=== PATIENT | female | born 1985 | race Caucasian/White ===

== ENCOUNTER 2018-11-01 11:38 | Emergency (ER) | payer SELFPAY ==
[2018-11-01 11:39] VITALS: BP 118/67; PULSE 78; RESP 18; TEMP 36.8; O2SAT 98; BMI 24.0
--- NOTE | 2018-11-01 12:17 | EKG12_ITS ---
Test Reason : CP Blood Pressure : / mmHG Vent. Rate : 075 BPM Atrial Rate : 075 BPM P-R Int : 150 ms QRS Dur : 096 ms QT Int : 388 ms P-R-T Axes : 050 031 036 degrees QTc Int : 433 ms Normal sinus rhythm Normal ECG Confirmed by MILLER GARRIDO, LARY ([id number]), photographic editor MANUEL VILLATORO ([id number] on 11/07/2018 4:17:28 PM Referred By: KLEVER/SONDRA Confirmed By:LARY BHATT MD
[2018-11-01 12:18] VITALS: BP 106/83; PULSE 78; RESP 16; O2SAT 96
[2018-11-01 12:19] VITALS: O2SAT 97
--- NOTE | 2018-11-01 12:20 | RAD_ITS ---
STUDY: X-RAY CHEST REASON FOR EXAM: Female, 33 years old. Chest pain and shortness of breath TECHNIQUE: Single AP portable view of the chest. COMPARISON: None. FINDINGS: The lungs are clear and expanded. There is no demonstrated pleural abnormality. Normal size heart. Normal mediastinum and charles. Normal visualized pulmonary arteries. Normal visualized aortic arch and descending thoracic aorta. Normal visualized thoracic spine. Normal visualized ribs, clavicles, and shoulders. There is no demonstrated abnormality of the visualized soft tissue structures of the upper abdomen. RAD/Chest 1 View (Portable) IMPRESSION: Normal x-ray examination of the chest. Electronically Signed: Simeon Wynne DO at 12:42 EDT Tel , Service support ,
[2018-11-01] MEDS: Mag Hydrox/Al Hydrox/Simeth 30 ML UDC PO (12:28)
[2018-11-01 12:39] LABS: Absolute Lymphocyte Count 3.36 X10^3/ul (0.83-4.51); Absolute Neutrophil Count 3.8 X10^3/uL (2.0-7.7); Basophil# 0.04 X10^3/uL; Basophil% 0.5 % (0-1); Eosinophil# 0.34 X10^3/uL; Eosinophils% 4.1 % (0-5); Hematocrit 41.4 % (37-47); Lymphocyte # 3.36 X10^3/ul (4.0); Lymphocyte % 40.4 % (19-41); Mean Corp Hgb Conc 33.8 g/gl (32-36); Mean Corpuscular Hgb 30.3 pg (27.0-32.0); Mean Corpuscular Volume 89.6 fL (81-99); Monocyte# 0.73 X10^3/uL; Monocyte% 8.8 % (0-10); Neutrophil # 3.83 X10^3/uL (2.7-7.7); Neutrophil % 46.1 % (47-70); Platelet Count 312 K/mm3 (150-450); RBC Distribution Width CV 13.5 % (11.6-14.6); RBC Distribution Width SD 44.3 fl (35.1-43.9); Red Blood Count 4.62 M/mm3 (4.2-5.4); White Blood Count 8.3 K/mm3 (4.4-11.0)
[2018-11-01 12:41] LABS: POSITIVE COUNT NO; POSITIVE DIFFERENTIAL NO; POSITIVE MORPHOLOGY NO
--- NOTE | 2018-11-01 12:44 | ED.VISSUMM ---
- ER Visit Summary Date of Service: 11/01/18 Chief Complaint: Pain chest pain History of Present Illness: The patient is a 33 F with chest pain that has been constant for about 8 hours. She woke up after night terror with this pain and has had it ever since. She denies any back pain or radiation of the pain to any extremity or jaw, no tearing sensation. She denies any PE risk factors. Pain is in the wrist lower retrosternal region. No history of trauma. Physical Examination: Not appear in acute distress. Moist mucous membranes, no obvious facial deformity No C-spine tenderness supple neck. Regular rate and rhythm without any obvious murmurs Clear lungs bilaterally speaking in full sentences without any obvious respiratory distress Abdomen soft and nontender no guarding or rebound Moves all extremities without any difficulty or pain. Skin does not show any obvious rashes or lesions, no trauma. Alert oriented ?3 with no gross focal deficit Emergency Department Course and Treatment: Patient has a normal EKG, normal troponin. Heart score is a 0, may be a 1. She has no PE or DVT risk factors. I will discharge her with symptomatic treatment. Disposition: Discharge stable condition Impression: Chest pain This note was generated with [employer] dictation software. It may contain incorrect words, spelling, and punctuation that were not noted in review of the chart prior to signing ED Disposition - Plan for ED Patient: Referrals: Shlomo Romero MD [Primary Care Provider] -
[2018-11-01 12:50] LABS: Anion Gap 3 (5-15); BUN 10 mg/dL (7-18); BUN/Creat Ratio 14.6 RATIO (10-20); Calcium,Total 8.5 mg/dL (8.5-10.1); Chloride 108 mmol/L (98-107); Creatinine, Serum 0.68 mg/dL (0.55-1.02); EST Glomerular Filtration Rate 106 mL/min (>60); Est Glom Filt Rate - Afr Amer 129 mL/min (>60); Estimated Creatinine Clearance 103.51 ml/min; Glucose 95 mg/dL (74-106); Potassium 3.5 mmol/L (3.5-5.1); Sodium Level 136 mmol/L (136-145)
[2018-11-01 13:01] VITALS: BP 113/81; PULSE 68; RESP 16; O2SAT 98
--- NOTE | 2018-11-01 13:03 | ED.DEP ---
ED Disposition - Plan for ED Patient: Disposition: Home or Assisted Living Instructions: ED Chest Pain Atypical Unkn Cause Prescriptions: Lorazepam [Ativan] 0.5 mg PO DAILY #8 tab Referrals: Shlomo Romero MD [Primary Care Provider] - 3-5 Days
[2018-11-01] MEDS: Ketorolac 15 MG/ML Vial IV (13:37)
== END 2018-11-01 13:43 | disposition home or self-care (01) ==
LOC: ED 13:13
PROVIDERS: Emergency Provider Emergency Medicine; Family Provider Family Medicine; PCP Family Medicine
DX: R07.9 Chest pain, unspecified (principal)
CPT/HCPCS: 71045; 80048; 84484; 85025; 93005; 96374; 99284; A4216

== ENCOUNTER 2019-06-10 08:06 | Emergency (ER) | payer SELFPAY ==
[2019-06-10 08:07] VITALS: BP 140/94; PULSE 115; RESP 18; TEMP 36.3; O2SAT 98; BMI 23.3
[2019-06-10 08:12] VITALS: RESP 16
--- NOTE | 2019-06-10 08:25 | ED.DCSUM_ITS ---
History of Present Illness Chief Complaint: Upper Extremity Injury Detail of Chief Complaint: Neck and left arm stiffness Informant: Patient Onset: Today Current Severity: Moderate Maximum Severity: Moderate Narrative: Patient states she woke up this morning with pain in the left side of her neck with spasm and pain going on her left arm. She is left-hand dominant. She denies any direct injury or trauma. She states she has had this happen once before several years ago. - Past Medical History (1) ADHD Status: Chronic (2) Anxiety Status: Chronic (3) Depression Status: Chronic Past Medical History - Allergies and Home Meds Allergies/Adverse Reactions: Allergies codeine Allergy (Verified 06/10/19 08:07) Itching latex Allergy (Verified 06/10/19 08:07) Hives Sulfa (Sulfonamide Antibiotics) Allergy (Verified 06/10/19 08:07) throat swelling metoclopramide HCl [From Reglan] Adverse Reaction (Verified 06/10/19 08:07) Other anxiety Primary Care Physician: Shlomo Romero MD [Primary Care Provider] - Prior records reviewed: Yes Smoking Status: Never smoker Review of Systems General: Denies: Chills, Fever Eyes: Denies: Visual changes - bilaterally ENT: Denies: Bilateral ear pain Cardiovascular: Denies: Chest pain, Palpitations Respiratory: Denies: Dyspnea, Cough Gastrointestinal: Denies: Abdominal pain, Nausea, Vomiting, Diarrhea Musculoskeletal: Reports: Neck pain, Extremity Pain Neurological: Reports: Parasthesia - Intermittent tingling in left hand Endocrine: Denies: Polyuria, Polydipsia Hematologic: Denies: Easy bruising Allergy: Denies: Uticaria Physical Exam Vital Signs/Narrative: Vital Signs Temp Pulse Resp BP Pulse Ox 06/10/19 08:12 16 06/10/19 08:07 97.4 F L 115 H 18 140/94 H 98 Inital Vital Signs reviewed: Yes General: Well nourished, Well developed Head: Normocephalic ENT: Moist mucous membranes Neck: Supple, - - Tenderness palpation of the left cervical paraspinal muscles. Cardiovascular: Regular rate, Regular rhythm Respiratory: No distress, CTA bilaterally Abdomen: Soft, Nontender Extremities: - - Mild muscular tenderness in the left arm. No focal joint tenderness. Strong distal pulses and strong hand grasp. Skin: Normal color Neurological: Alert, Oriented x3 Psychological: Normal affect Diagnostic/Tx/Re-eval - Medical Decision Making Patient had no trauma or injury do not feel that x-rays be beneficial. She will be given anti-inflammatories here. She be given prescription for anti- inflammatories and antispasm medication for home. She will follow-up with her primary care physician if not improving. ED Disposition - Plan for ED Patient: Disposition: Home or Assisted Living Diagnosis: Neck muscle spasm Instructions: NECK SPASM, No Trauma Prescriptions: cycloBENZAPRine HCl [Flexeril] 10 mg PO TID PRN #20 tablet PRN Reason: Muscle Spasm Naproxen [Naprosyn] 500 mg PO BID PRN PRN #20 tablet PRN Reason: Pain Score 1-10/10 Referrals: Shlomo Romero MD [Primary Care Provider] - 3-5 Days if not improving
[2019-06-10] MEDS: Naproxen 500 MG Tablet PO (08:32)
== END 2019-06-10 08:40 | disposition home or self-care (01) ==
PROVIDERS: Emergency Provider Emergency Medicine; Family Provider Family Medicine; PCP Family Medicine
DX: M62.838 Other muscle spasm (principal); F32.9 Major depressive disorder, single episode, unspecified; F41.9 Anxiety disorder, unspecified; F90.9 Attention-deficit hyperactivity disorder, unspecified type; Z88.2 Allergy status to sulfonamides; Z88.8 Allergy status to other drugs, medicaments and biological substances; Z91.040 Latex allergy status
CPT/HCPCS: 99283

== ENCOUNTER 2019-08-29 10:42 | Emergency (ER) | payer SELFPAY ==
[2019-08-29 10:43] VITALS: BP 111/70; PULSE 90; RESP 16; TEMP 36.4; O2SAT 97; BMI 22.3
--- NOTE | 2019-08-29 10:49 | RAD_ITS ---
STUDY: X-RAY - LUMBAR SPINE REASON FOR EXAM: Female, 34 years old. LOWER BACK PAIN X COUPLE MONTHS, RADIATION DOWN RT LEG TECHNIQUE: 3 view(s) of the lumbar spine were obtained. COMPARISON: None FINDINGS: There is straightening of the normal lumbar lordosis. There is a minimal dextroscoliosis of the lumbar spine. There is a normal alignment of the vertebrae. Normal vertebral bodies and endplates. Normal disc space heights. Partial sacralization of the L5 vertebrae on the left side. The soft tissue structures are unremarkable. RAD/Lumbar Spine 2 or 3 Views IMPRESSION: Straightening of the normal lumbar lordosis. Partial sacralization of the L5 vertebrae on the left. Electronically Signed: Yariel Armenta, at 11:51 EST , Service support ,
--- NOTE | 2019-08-29 10:52 | ED.DCSUM_ITS ---
History of Present Illness Chief Complaint: Back Informant: Patient Onset: Days Context: Gradual Onset Timing: Intermittent Current Severity: Moderate Maximum Severity: Moderate Narrative: The patient presents to the emergency department with low back pain with radicular symptoms. She states that over the past month, she is had a dull ache in her low back. She states that she works for [employer] and has to be on her hands and knees a lot. Over the past 2 days, she is begun to have burning pain down her leg. She denies any numbness in her groin. She denies any definitive trauma. She is had no difficulty urinating or moving her bowels. She has been taking Aleve with some improvement. She has no history of prior lumbar surgery. Prior similar symptoms: No Recent Illness/Hospitalization: No Past Medical History - Allergies and Home Meds Allergies/Adverse Reactions: Allergies codeine Allergy (Verified 08/29/19 10:42) Itching latex Allergy (Verified 08/29/19 10:42) Hives Sulfa (Sulfonamide Antibiotics) Allergy (Verified 08/29/19 10:42) throat swelling metoclopramide HCl [From Reglan] Adverse Reaction (Verified 08/29/19 10:42) Other anxiety Primary Care Physician: Shlomo Romero MD [Primary Care Provider] - Prior records reviewed: Yes Past Medical History: None Surgical History: noncontributory Smoking Status: Never smoker Review of Systems General: Denies: Chills, Fever, Sweats Eyes: Denies: Visual changes - bilaterally, Diplopia ENT: Denies: Rhinorrhea, Sore throat Cardiovascular: Denies: Chest pain, Palpitations Respiratory: Denies: Dyspnea, Cough, Dyspnea on exertion Gastrointestinal: Denies: Abdominal pain, Nausea, Vomiting, Diarrhea, Melena, Hematochezia Genitourinary: Denies: Dysuria, Hematuria, Frequency Musculoskeletal: Denies: Back pain, Extremity Pain Skin: Denies: Rash, Wounds Neurological: Denies: Headache, Weakness, Numbness Physical Exam Vital Signs/Narrative: Vital Signs Temp Pulse Resp BP Pulse Ox 08/29/19 10:43 97.5 F L 90 16 111/70 97 Inital Vital Signs reviewed: Yes General: Well nourished, Well developed, No Acute Distress Head: Normocephalic, Atraumatic Eyes: Perrl, EOMI ENT: Moist mucous membranes, No rhinorrhea Neck: Supple, Nontender Cardiovascular: Regular rate, Regular rhythm, No murmurs Respiratory: No distress, CTA bilaterally, Chest nontender Abdomen: Soft, Nontender, Nondistended, Normal bowel sounds Back: Normal Inspection. Negative for: CVA tenderness, Spinal tenderness Extremities: Nontender, No edema Skin: Normal color, No rash Neurological: Alert, Oriented x3, Cranial nerves II-XII grossly intact, Normal Strength, Normal Sensation Psychological: Normal affect, Normal Mood Diagnostic/Tx/Re-eval Clinical Impression(s) from Imaging Studies Lumbar Spine X-Ray 08/29/19 10:49 IMPRESSION: Straightening of the normal lumbar lordosis. Partial sacralization of the L5 vertebrae on the left. Electronically Signed: Yariel Mcdonoughmanuel, at 11:51 EST , Service support , - Medical Decision Making The patient symptoms do seem consistent with a radiculopathy. She has normal reflexes, pulses, and a normal steady gait. She has had no red flag symptoms. Plain films obtained which are unremarkable for acute fracture. I am going to treat the patient with a short course of analgesics and antispasmodics. She was counseled on follow-up and she may benefit from physical therapy and reasons to return. She is comfortable with this plan of care. Impression 1. Right low back pain with radiculopathy ED Disposition - Plan for ED Patient: Instructions: BACK PAIN w/ SCIATICA Prescriptions: cycloBENZAPRine HCl [Flexeril] 10 mg PO TID PRN #20 tab PRN Reason: Muscle Spasm Prescription Printed MethylPREDNISolone DosePak [Medrol DosePak] 4 mg PO UD #1 box Prescription Printed Hydrocodone Bitart/Apap 5-325 [[place] 5MG-325MG] 1 tab PO Q6H PRN PRN 3 Days #10 tab PRN Reason: Pain Prescription Printed Referrals: Shlomo Romero MD [Primary Care Provider] -
== END 2019-08-29 12:16 | disposition home or self-care (01) ==
LOC: ED 11:32
PROVIDERS: Emergency Provider Emergency Medicine; PCP Family Medicine
DX: M54.16 Radiculopathy, lumbar region (principal)
CPT/HCPCS: 72100; 99282

== ENCOUNTER 2020-05-13 09:41 | Emergency (ER) | payer SELFPAY ==
[2020-05-13 09:41] VITALS: BP 126/75; PULSE 82; RESP 17; TEMP 36.2; O2SAT 98; BMI 26.2
[2020-05-13 09:58] VITALS: RESP 16
--- NOTE | 2020-05-13 09:58 | ED.VIS.GEN ---
History of Present Illness Chief Complaint: Flank Pain Informant: Patient Narrative: Patient presents to the emergency department for the evaluation of right flank and pelvic pain. Patient reports that last week she had a couple urinations where she noted blood. She states that resolved but now has been having this intermittent pain. She notes urinary frequency but no dysuria. She thought that perhaps she had an ovarian cyst or a kidney stone. She denies any prior abdominal surgeries. No fevers. She notes nausea but no vomiting. Normal bowel movements. No rashes. - Past Medical History (1) ADHD Status: Chronic (2) Anxiety Status: Chronic (3) Depression Status: Chronic (4) Migraine Status: Chronic Past Medical History - Allergies and Home Meds Allergies/Adverse Reactions: Allergies codeine Allergy (Verified 05/13/20 09:41) Itching latex Allergy (Verified 05/13/20 09:41) Hives Sulfa (Sulfonamide Antibiotics) Allergy (Verified 05/13/20 09:41) throat swelling metoclopramide HCl [From Reglan] Adverse Reaction (Verified 05/13/20 09:41) Other anxiety Primary Care Physician: Shlomo Romero MD [Primary Care Provider] - Prior records reviewed: Yes Surgical History: noncontributory Smoking Status: Never smoker Drugs: None Review of Systems General: Denies: Chills, Fever, Sweats Eyes: Denies: Visual changes - bilaterally, Diplopia ENT: Denies: Rhinorrhea, Sore throat Cardiovascular: Denies: Chest pain, Palpitations Respiratory: Denies: Dyspnea, Cough, Dyspnea on exertion Gastrointestinal: Reports: Abdominal pain, Nausea. Denies: Vomiting, Diarrhea, Melena, Hematochezia Genitourinary: Reports: Hematuria, Frequency. Denies: Dysuria Musculoskeletal: Reports: - - Right flank pain. Denies: Back pain, Extremity Pain Skin: Denies: Rash, Wounds Neurological: Denies: Headache, Weakness, Numbness Physical Exam Vital Signs/Narrative: Vital Signs Temp Pulse Resp BP Pulse Ox 05/13/20 09:41 97.2 F L 82 17 126/75 H 98 Inital Vital Signs reviewed: Yes General: Well nourished, Well developed, No Acute Distress Head: Normocephalic, Atraumatic Eyes: Perrl, EOMI ENT: Moist mucous membranes, No rhinorrhea Neck: Supple, Nontender Cardiovascular: Regular rate, Regular rhythm, No murmurs Respiratory: No distress, CTA bilaterally, Chest nontender Abdomen: Soft, Nondistended, Normal bowel sounds, Tender - Tender palpation right lower quadrant and suprapubic region. No rebound.. Negative for: Guarding, Rebound tenderness Back: Normal Inspection, CVA tenderness - right Extremities: Nontender, No edema Skin: Normal color, No rash Neurological: Alert, Oriented x3, Cranial nerves II-XII grossly intact, Normal Strength, Normal Sensation Psychological: Normal affect, Normal Mood Diagnostic/Tx/Re-eval Laboratory Last Values Urine Color Yellow (Yellow) 05/13/20 11:15 Urine Clarity Sl. Cloudy (Clear) 05/13/20 11:15 Urine pH 6.0 (5.0 - 8.0) 05/13/20 11:15 Ur Specific [place] 1.015 (1.002-1.030) 05/13/20 11:15 Urine Protein 15 mg/dl (Negative) H 05/13/20 11:15 Urine Glucose (UA) Normal mg/dl (Normal) 05/13/20 11:15 Urine Ketones Negative mg/dl (Negative) 05/13/20 11:15 Urine Occult Blood 250 /ul (Negative) H 05/13/20 11:15 Urine Nitrite Negative (Negative) 05/13/20 11:15 Urine Bilirubin Negative mg/dL (Negative) 05/13/20 11:15 Urine Urobilinogen Normal mg/dl (Normal) 05/13/20 11:15 Ur Leukocyte Esterase Negative /ul (Negative) 05/13/20 11:15 Urine RBC 25-50 SEEN /hpf (0-5) 05/13/20 11:15 Urine WBC 0 SEEN /hpf (0-5) 05/13/20 11:15 Ur Squamous Epith Cells 0-5 SEEN /hpf (5-10) 05/13/20 11:15 Urine Bacteria 1+ /hpf (None Seen) 05/13/20 11:15 Urine Mucus 0 SEEN /hpf (<or=2+) 05/13/20 11:15 Urine Test Negative Negative 05/13/20 11:15 Clinical Impression(s) from Imaging Studies Abdomen/Pelvis CT 05/13/20 11:32 IMPRESSION: 3.2 mm calculus in the midportion of the right ureter causing mild degree of right hydronephrosis and hydroureter. Electronically Signed: Yariel Armenta, at 11:50 EDT , Service support , - Medical Decision Making Patient has a 3 mm stone proximally on the right. Mild hydro-. Urine is not infected. Would refer her to urology and write for pain and nausea medication. Return instructions given. ED Disposition - Plan for ED Patient: Disposition: Home or Assisted Living Diagnosis: Right ureteral calculus, Renal colic on right side Instructions: ED Renal Stone w Colic Prescriptions: Hydrocodone Bitart/Apap 5-325 [[place] 5MG-325MG] 1 tab PO Q6H PRN PRN 3 Days #15 tab PRN Reason: Pain Prescription Printed Ondansetron [Zofran Odt] 4 mg PO Q6H PRN PRN #14 tab PRN Reason: Nausea Prescription Printed Referrals: Jordan Menendez MD [STAFF PHYSICIAN] - As soon as possible Ania Worthy MD [STAFF PHYSICIAN] - As soon as possible
[2020-05-13] MEDS: Ondansetron ODT 4 MG Tablet PO (11:00)
[2020-05-13 11:20] LABS: Mucous, Urine 0 SEEN /hpf (<or=2+); White Blood Cells 0 SEEN /hpf (0-5)
[2020-05-13 11:26] LABS: Color, Urine Yellow (Yellow); Glucose, Dipstick Normal (Normal); Ketone-Dipstick Negative (Negative); Leukocyte Esterase-Dipstick Negative /ul (Negative); Nitrite-Dipstick Negative (Negative); Occult Blood-Urine 250 /ul (Negative); Protein-Dipstick 15 mg/dl (Negative); Specific Gravity, Urine 1.015 (1.002-1.030); Urine Bilirubin Dipstick Negative (Negative); Urine Clarity Sl. Cloudy (Clear); Urine Urobilinogen Normal (Normal)
[2020-05-13 11:31] LABS: Bacteria 1+ /hpf (None Seen); Red Blood Cells-Urine 25-50 SEEN /hpf (0-5); Squamous Epithelial Cells - UA 0-5 SEEN /hpf (5-10)
[2020-05-13 11:32] LABS: Internal QC Validated? YES +Cl - CLEAR BKGD; Pregnancy, Urine Negative Negative
--- NOTE | 2020-05-13 11:32 | CT_ITS ---
STUDY: CT ABDOMEN AND PELVIS WITHOUT CONTRAST REASON FOR EXAM: Female, 35 years old. BILATERAL FLANK PAIN WITH NAUSEA AND INCREASED URINARY FREQUENCY RADIATION DOSAGE (If Supplied By Facility): CTDIvol = ( 6.90 ) mGy, DLP = ( 351.60 ) mGycm TECHNIQUE: Transaxial images were obtained from the dome of the diaphragm to the symphysis pubis without oral contrast, and without intravenous contrast. Sagittal and coronal images were reconstructed. Individualized dose optimization techniques were used for this CT. COMPARISON: None. FINDINGS: The visualized lung bases are unremarkable. The visualized portions of the heart are within normal limits. Normal liver. Normal gallbladder and extrahepatic biliary system. Normal spleen. Normal pancreas. Normal bilateral adrenal glands. Mild degree of right hydronephrosis and hydroureter due to a 3.2 mm calculus in the midportion of the right ureter. Normal left kidney. Normal visualized stomach. Normal small intestine. Normal colon. The appendix is visualized and appears normal. Normal abdominal aorta. Normal inferior vena cava. Normal retroperitoneum. Normal urinary bladder. Normal abdominal wall. Normal osseous structures. CT/Abdomen/Pelvis without Cont IMPRESSION: 3.2 mm calculus in the midportion of the right ureter causing mild degree of right hydronephrosis and hydroureter. Electronically Signed: Yariel Armenta, at 11:50 EDT , Service support ,
== END 2020-05-13 13:08 | disposition home or self-care (01) ==
PROVIDERS: Emergency Medicine; PCP Family Medicine
DX: N13.2 Hydronephrosis with renal and ureteral calculous obstruction (principal)
CPT/HCPCS: 74176; 81001; 81025; 99282

== ENCOUNTER 2021-05-11 08:29 | Emergency (ER) | payer MEDICARE, SELFPAY ==
[2021-05-11 08:30] VITALS: BP 134/104; PULSE 117; RESP 22; TEMP 36.6; O2SAT 97; BMI 27.3
[2021-05-11 08:57] VITALS: O2SAT 96
--- NOTE | 2021-05-11 09:21 | EDS_ITS ---
HPI History of Present Illness Chief Complaint: Shortness of Breath Detail of Chief Complaint: Patient with URI symptoms x2 days Informant: patient Narrative Narrative: Patient presents to the emergency department complaint sore throat, cough and fever for 2 days. She denies shortness of breath. She does describe body aches and loss of taste and smell. Patient denies any Covid exposures. She has not had the Covid vaccine. She has no medical history otherwise. She denies any chest pain. Prior similar symptoms: No PFSH PFSH Medical History no medical history Home Medications NK 05/11/21 [History Last Taken Unknown] Allergy/AdvReac Type Severity Reaction Status Date / Time codeine Allergy Itching Verified 05/11/21 08:30 latex Allergy Hives Verified 05/11/21 08:30 Sulfa (Sulfonamide Allergy throat Verified 05/11/21 08:30 Antibiotics) swelling metoclopramide HCl AdvReac Other Verified 05/11/21 08:30 [From [facility]] Surgical History no surgical history Social History Smoking Status: Never smoker ROS ROS ED Constitutional Constitutional ED: Reports systems reviewed and no addt'l complaints, except as documented and fever(s); Denies body ache(s), change in weight or chills Eyes Eyes: Denies acute decrease in peripheral vision, change in vision, double vision or loss of vision ENT ENT ED: Reports none and sore throat; Denies ear pain, lip swelling, loss taste/smell, neck pain or otalgia Cardiovascular Cardiovascular: Reports none; Denies abdominal pain, chest pain with activity, leg edema, lightheadedness, palpitations, rapid heart rate or syncope Respiratory/Chest Respiratory/Chest: Reports none and cough; Denies change in mental status, dry cough, dyspnea, hemoptysis, shortness of breath at rest or shortness of breath with exertion Gastrointestinal Gastrointestinal: Reports none; Denies abdominal pain, change in stool character, diarrhea, hematemesis, hematochezia, melena, rectal bleeding or vomiting Genitourinary Genitourinary ED: Reports none; Denies abdominal discomfort, anuria, dysuria, genital pain or polyuria Musculoskeletal Musculoskeletal: Reports none and myalgias; Denies arthralgias, back pain, difficulty walking, extremity pain or muscle weakness Integumentary Reports none; Denies abscess or rash Neurologic Neurologic: Reports none and headache(s); Denies abnormal gait, confusion, focal weakness, frequent falls, loss of vision, numbness, paresthesias, radicular pain, vertigo or weakness Psychiatric Psychiatric: Reports systems reviewed and no addt'l complaints, except as documented and none; Denies behavioral changes, confusion, difficulty concentrating, hallucinations, suicidal ideation, tactile hallucinations or visual hallucinations Endocrine Endocrinology: Denies none, cold intolerance, excessive sweating, fatigue or heat intolerance Hematologic/Lymphatic Hematologic/Lymphatic: Reports none; Denies anemia, easy bleeding or easy bruising Allergic/Immunologic Allergic/Immunologic ED: Denies as per HPI, none, lip swelling, mouth swelling, throat swelling, tongue swelling or hives EXAM Physical Exam Const Vital Signs: 05/11/21 08:30 05/11/21 08:57 Temperature 98 F Temperature Source Temporal Pulse Rate 117 H Respiratory Rate 22 H Respiratory Effort Normal Respiratory Depth Normal Respiratory Pattern Normal Blood Pressure 134/104 H Blood Pressure Mean 114 Pulse Ox 97 Oxygen Delivery Method Room Air Room Air Positive well nourished and well developed General Appearance ED: well developed and NAD HEENT Reports TM's clear and moist mucous membranes HEENT Narrative: No pharyngeal erythema or exudates. Uvula midline. No trismus. normocephalic and atraumatic; Negative for trauma or tenderness Tympanic Membrane ED: Yes TM's clear Eyes PERRL and EOMs intact bilaterally General Eye ED: Negative for pale conjunctiva or scleral icterus Neck no lymphadenopathy, supple and no JVD General: Negative for tenderness Chest Wall inspection of chest normal and palpation of chest normal Chest: Negative for tenderness Resp normal respiratory effort and clear to auscultation bilaterally Effort and Inspection: Negative for respiratory distress or pain with movement Auscultation: Negative for rhonchi, wheezes or diminished lung sounds Cardio regular rate, regular rhythm, S1 normal heart sound, S2 normal heart sound and no murmurs Peripheral Pulses: pulses 2+ throughout GI normal to inspection, nondistended, normoactive bowel sounds, soft to palpation, non-tender, non-distended and no masses Back/Spine no CVA tenderness and no thoracic nor lumbar tenderness Extremity normal to inspection General Extremety ED: Negative for edema General Extremity: Negative for edema Neuro oriented x3, CN's II-XII intact bilaterally, no sensory deficits noted and gait normal Sensorium / Orientation: awake, alert, oriented to person, oriented to place and oriented to time Motor Exam: strength 5/5 throughout and strength abnormal Psych mental status grossly normal Skin no rashes or lesions noted and no wounds MDM MDM MDM Narrative Medical decision making narrative: Patient has COVID-19. I do not feel any further work-up is indicated. Patient advised to return if increasing shortness of breath or condition should worsen anyway. Patient will be referred to primary care physician program coordinator executive education for no doc. Lab Data Attestation: I reviewed the patient's lab results. Discharge Plan Triage Chief Complaint: Shortness of Breath ED Provider: Courtney Melendez Dx/Rx/DC Orders Clinical Impression: COVID-19 Instructions: Caring for Someone Who Has COVID-19 Prescriptions: No Action NK RF: 0 Primary Care Provider: Shlomo Romero Referrals: Shlomo Romero MD [Primary Care Provider] - 5-7 Days Disposition Disposition: Home, Self Care
== END 2021-05-11 09:31 | disposition home or self-care (01) ==
PROVIDERS: Emergency Provider Emergency Medicine
DX: U07.1 COVID-19 (principal)
CPT/HCPCS: 87426; 99282; A4216

== ENCOUNTER 2021-05-18 14:12 | Emergency (ER) | payer SELFPAY ==
[2021-05-18 14:13] VITALS: BP 115/93; PULSE 94; RESP 20; TEMP 36.2; O2SAT 95; BMI 26.5
--- NOTE | 2021-05-18 14:57 | EKG12_ITS ---
Test Reason : SOB Blood Pressure : / mmHG Vent. Rate : 068 BPM Atrial Rate : 068 BPM P-R Int : 134 ms QRS Dur : 098 ms QT Int : 408 ms P-R-T Axes : 028 046 048 degrees QTc Int : 433 ms Normal sinus rhythm Normal ECG Confirmed by MILLER GARRIDO, LARY ([id number]), editor department TEDDY WADE ([id number]) on 05/20/2021 10:57:35 AM Referred By: BB Confirmed By:LARY BHATT MD
--- NOTE | 2021-05-18 14:59 | ED.VIS.DYS ---
HPI History of Present Illness Chief Complaint: Shortness of Breath Informant: patient Narrative Narrative: 36-year-old female presents on approximately day 8 or 9 of Covid. She tested positive on 11 May here in [place]. Patient states for the past 3 days her cough and shortness of breath have worsened. She notes coughing fits postnasal drip and rhinorrhea. She notes decreased appetite. She denies any significant medical problems other than anxiety depression. She was nonvaccinated. Patient does note green sputum. PFSH PFSH Medical History (Updated 05/18/21 @ 16:[address] Juan Arreola DO) ADHD Anxiety COVID-19 Depression Migraine Home Medications dexamethasone [Decadron] 6 mg PO DAILY #5 tab 05/18/21 [Rx Last Taken Unknown] Allergy/AdvReac Type Severity Reaction Status Date / Time codeine Allergy Itching Verified 05/18/21 14:14 latex Allergy Hives Verified 05/18/21 14:14 Sulfa (Sulfonamide Allergy throat Verified 05/18/21 14:14 Antibiotics) swelling metoclopramide HCl AdvReac Other Verified 05/18/21 14:14 [From Reg[facility]] Surgical History no surgical history no surgical history Social History (Updated 05/18/21 @ 15:[address] Juan Arreola DO) Smoking Status: Never smoker substance use type: does not use ROS ROS ED ROS Narrative Generalized fatigue Constitutional Constitutional ED: Reports chills and sweats; Denies weight loss Eyes Eyes: Denies change in vision or diplopia ENT ENT ED: Denies ear pain, rhinorrhea or sore throat Cardiovascular Cardiovascular: Reports chest pain; Denies orthopnea, palpitations or racing heartbeat Respiratory/Chest Respiratory/Chest: Reports cough, dyspnea, dyspnea on exertion and sputum; Denies orthopnea Gastrointestinal Gastrointestinal: Reports nausea; Denies abdominal pain, diarrhea or vomiting Genitourinary Genitourinary ED: Denies dysuria, hematuria or urinary frequency Musculoskeletal Musculoskeletal: Reports myalgias; Denies arthralgias Integumentary Denies abscess or rash Neurologic Neurologic: Denies headache(s) or weakness Psychiatric Psychiatric: Denies anxiety, depression, suicidal ideation or suicidal thoughts Endocrine Endocrinology: Denies polydipsia, polyphagia or polyuria Allergic/Immunologic Allergic/Immunologic ED: Denies mouth swelling, tongue swelling or urticaria EXAM Physical Exam Const Vital Signs: 05/18/21 14:13 05/18/21 15:22 Temperature 97.1 F L Temperature Source Temporal Pulse Rate 94 Respiratory Rate 20 H Respiratory Effort Short of Breath Respiratory Pattern Normal Blood Pressure 115/93 H Blood Pressure Mean 100 Pulse Ox 95 Oxygen Delivery Method Room Air Positive well nourished and well developed General Appearance ED: well developed HEENT Reports normocephalic, head/scalp atraumatic, TM's clear and moist mucous membranes HEENT Narrative: Rhinorrhea atraumatic Tympanic Membrane ED: Yes TM's clear Eyes PERRL and EOMs intact bilaterally Neck no lymphadenopathy, supple and no JVD Resp normal respiratory effort Auscultation: wheezes Cardio regular rate, regular rhythm and no murmurs GI normal to inspection, nondistended, normoactive bowel sounds and non-tender Palpation: soft Back/Spine no CVA tenderness and normal ROM Extremity normal to inspection General Extremety ED: Negative for edema General Extremity: Negative for edema Neuro oriented x3 and CN's II-XII intact bilaterally Sensorium / Orientation: alert Motor Exam: strength 5/5 throughout Psych mental status grossly normal Mood & Affect: Negative for depressed or tearful Skin no rashes or lesions noted and no wounds Rashes: no rashes MDM MDM MDM Narrative Medical decision making narrative: My interpretation of the chest x-ray is no acute findings. White count is normal at 6 hemoglobin 15.2. D-dimer 0.35. CMP showed ALT of 88 troponin is 6. Patient received instruction and albuterol MDI. She also received a dose of Decadron. Continue this therapy at home. Lab Data Labs: Laboratory Results - last 24 hr 05/18/21 05/18/21 05/18/21 15:25 15:25 15:25 WBC 6.0 RBC 5.06 Hgb 15.2 H Hct 44.1 MCV 87.2 MCH 30.0 MCHC 34.5 RDW Std Deviation 40.1 RDW Coeff of Yes[place] 12.6 Plt Count 282 MPV 10.3 Immature Gran % (Auto) 0.200 Neut % (Auto) 41.3 L Lymph % (Auto) 48.7 H Mayes % (Auto) 8.2 Eos % (Auto) 1.3 Baso % (Auto) 0.3 Absolute Neuts (auto) 2.5 Absolute Lymphs (auto) 2.92 Nucleated RBC % 0 D-Dimer Quant (PE/DVT) 0.35 Sodium 140 Potassium 3.6 Chloride 107 Carbon Dioxide 26.0 Anion Gap 7 BUN 13 Creatinine 0.72 Estim Creat Clear Calc 91.07 Est GFR (MDRD) Af Amer 119 Est GFR (MDRD) Non-Af 98 BUN/Creatinine Ratio 18.0 Glucose 102 Calcium 8.9 Total Bilirubin 0.40 AST 25 ALT 88 H Alkaline Phosphatase 89 Troponin I High Sens 6 Total Protein 7.2 Albumin 3.4 Globulin 3.8 Albumin/Globulin Ratio 0.9 EKG Initial EKG: Attestation: I personally reviewed and interpreted this EKG as follows: Comments: Normal sinus rhythm ventricular rate of 68 bpm Discharge Plan Triage Chief Complaint: Shortness of Breath ED Provider: Juan Arreola Dx/Rx/DC Orders Clinical Impression: Acute bronchitis due to COVID-19 virus Instructions: Coronavirus Disease 2019 (COVID-19): Caring for Yourself or Others Prescriptions: New dexamethasone [Decadron] 6 mg tablet 6 mg PO DAILY Qty: 5 RF: 0 Primary Care Provider: Care Physician,No Primary Referrals: Care Physician,No Primary [Primary Care Provider] - Activity Restrictions/Additional Instructions: 3 to 4 puffs of the albuterol MDI every 4 hours or as needed. Disposition Disposition: Home, Self Care
[2021-05-18] MEDS: dexAMETHasone 4 MG Tablet 6 MG PO (15:20)
[2021-05-18] MEDS: INHALER, ASSIST DEVICES 1 EACH SPACER INHALATION (15:24)
[2021-05-18 15:33] LABS: Absolute Lymphocyte Count 2.92 X10^3/uL (0.83-4.51); Absolute Neutrophil Count 2.5 X10^3/uL (2.0-7.7); Basophil# 0.02 X10^3/uL; Basophil% 0.3 % (0-1); Eosinophil# 0.08 X10^3/uL; Eosinophils% 1.3 % (0-5); Hematocrit 44.1 % (37-47); Hemoglobin 15.2 g/dL (12.0-15.0); Lymphocyte # 2.92 X10^3/ul (0.83-4.51); Lymphocyte % 48.7 % (19-41); Mean Corp Hgb Conc 34.5 g/dL (32-36); Mean Corpuscular Volume 87.2 fL (81-99); Mean Platelet Vol. 10.3 fl (6.2-12.0); Monocyte# 0.49 X10^3/uL; Monocyte% 8.2 % (0-10); NRBC Flagged by Analyzer 0 % (0-5); Neutrophil # 2.47 X10^3/uL (2.7-7.7); Neutrophil % 41.3 % (47-70); Platelet Count 282 K/mm3 (150-450); RBC Distribution Width CV 12.6 % (11.6-14.6); RBC Distribution Width SD 40.1 fl (35.1-43.9); Red Blood Count 5.06 M/mm3 (4.2-5.4)
--- NOTE | 2021-05-18 15:38 | RAD_ITS ---
HISTORY: covid 19, cough, dyspnea EXAMINATION/TECHNIQUE: XR Chest 1 View: Portable upright AP chest x-ray COMPARISON: 11/01/18 FINDINGS: LINES/DEVICES: None. LUNGS: No consolidation, edema or effusion. No pneumothorax. MEDIASTINUM AND CARDIOVASCULAR STRUCTURES: Cardiac silhouette not enlarged. Central airways and mediastinal contour are unremarkable. BONES AND SOFT TISSUES: No acute bony abnormalities. RAD/Chest 1 View (Portable) IMPRESSION: No radiographic evidence of acute cardiopulmonary disease. at 1609 Reported and signed by: Gunnar Licea MD Electronically Signed: Gunnar Licea MD at 16:08 EDT Tel , Service support ,
[2021-05-18 15:50] LABS: D-Dimer Quantitative (DVT/PE) 0.35 FEU/ug/m (0.27-0.49)
[2021-05-18 15:55] LABS: ALB/GLOB Ratio 0.9 RATIO (0.9-2.4); AST(SGOT) 25 U/L (15-37); Alanine Aminotransfer ALT/SGPT 88 U/L (13-56); Albumin, Serum 3.4 g/dL (3.2-5.0); Alkaline Phosphatase 89 U/L (45-117); Anion Gap 7 (5-15); BUN 13 mg/dL (7-18); Calcium,Total 8.9 mg/dL (8.5-10.1); Chloride 107 mmol/L (98-107); Creatinine, Serum 0.72 mg/dL (0.55-1.02); EST Glomerular Filtration Rate 98 mL/min (>60); Est Glom Filt Rate - Afr Amer 119 mL/min (>60); Estimated Creatinine Clearance 91.07 ml/min; Globulin 3.8 g/dL (2.2-4.2); Glucose 102 mg/dL (74-106); Potassium 3.6 mmol/L (3.5-5.1); Protein, Total 7.2 g/dL (6.4-8.2); Sodium Level 140 mmol/L (136-145); Troponin-I HS 6 pg/mL (3.0-54.0)
[2021-05-18 16:12] VITALS: RESP 20; O2SAT 96
== END 2021-05-18 16:12 | disposition home or self-care (01) ==
PROVIDERS: Emergency Provider Emergency Medicine
DX: U07.1 COVID-19 (principal); J20.8 Acute bronchitis due to other specified organisms
CPT/HCPCS: 71045; 80053; 84484; 85025; 85379; 93005; 94640; 99284; A4216

== ENCOUNTER 2022-01-09 03:57 | Emergency (ER) | payer OTHER, SELFPAY ==
[2022-01-09 03:58] VITALS: BP 122/68; PULSE 70; RESP 14; TEMP 36.6; O2SAT 96; BMI 27.4
--- NOTE | 2022-01-09 04:14 | ED.VIS.DENTA ---
HPI History of Present Illness Chief Complaint: Dental Informant: patient Onset/Context/Timing Onset: Yesterday Context: Gradual Onset Timing: Continuous Quality: Aching throbbing Location: Right side can tell of top or bottom Current Severity: Severe Maximum Severity: Severe Worsened by: Eating Relieved by: - (Nothing) Associated Symptoms Assocated Symptom - Dental: Negative for fever, jaw swelling or face swelling Narrative Narrative: Pain and sensation of swelling right dentition for the past 24 hours or so. Known history of dental problems. She knows she needs like for fillings. No fevers or chills or discharge or bleeding. [facility] Medical History ADHD Anxiety COVID-19 Depression Migraine Home Medications amoxicillin 500 mg tablet 500 mg PO TID #30 tabs 01/09/22 [Rx Last Taken Unknown] hydrocodone-acetaminophen 5-325mg 5mg-325mg 1 tab PO Q4H PRN PRN Pain 2 days #10 TABLETS 01/09/22 [Rx Last Taken Unknown] Allergy/AdvReac Type Severity Reaction Status Date / Time codeine Allergy Itching Verified 01/09/22 04:01 latex Allergy Hives Verified 01/09/22 04:01 Sulfa (Sulfonamide Allergy throat Verified 01/09/22 04:01 Antibiotics) swelling metoclopramide HCl AdvReac Other Verified 01/09/22 04:01 [From [facility]] Social History Smoking Status: Never smoker substance use type: does not use ROS ROS ED Constitutional Constitutional ED: Denies chills or fever(s) Eyes Eyes: Denies change in vision or double vision ENT ENT ED: Reports dental pain; Denies sinus pain or throat swelling Cardiovascular Cardiovascular: Denies chest pain or palpitations Respiratory/Chest Respiratory/Chest: Denies cough or dyspnea Integumentary Denies abscess or rash Neurologic Neurologic: Denies headache(s), paresthesias or weakness EXAM Physical Exam Const Vital Signs: 01/09/22 03:58 Temperature 98 F Temperature Source Temporal Pulse Rate 70 Respiratory Rate 14 Blood Pressure 122/68 H Blood Pressure Mean 86 Pulse Ox 96 Oxygen Delivery Method Room Air Positive well nourished and well developed General Appearance ED: well developed and NAD HEENT HEENT Narrative: Tender tooth #32 which appears to have a cecilio in the center of it and appears to be crowded by the other nearby molars. No abscess, no gingivitis, no bleeding, gingiva are normal-appearing. Maxillary teeth are nontender. No trismus. No sublingual edema. Face and Sinus: sinuses nontender Throat: posterior oropharynx normal Eyes PERRL and EOMs intact bilaterally Neck no lymphadenopathy and supple Resp normal respiratory effort Neuro oriented x3 and CN's II-XII intact bilaterally Sensorium / Orientation: alert Gait (Neuro): normal gait Psych mental status grossly normal and thought process normal Skin no rashes or lesions noted and no wounds MDM MDM MDM Narrative Medical decision making narrative: Will prescribe the patient something for pain and an antibiotic in case this is an early infected cecilio. There is no abscess that requires drainage at this time. Follow-up with dentistry. Discharge Plan Triage Chief Complaint: Dental ED Provider: Ramón Orlando Dx/Rx/DC Orders Clinical Impression: Odontalgia Instructions: ED Dental Pain Prescriptions: New hydrocodone-acetaminophen [hydrocodone-acetaminophen] 1 TABLET tablet 1 tab PO Q4H PRN PRN (Reason: Pain) 2 Days Qty: 10 0RF amoxicillin 500 MG tablet 500 mg PO TID Qty: 30 0RF Primary Care Provider: Care Physician,No Primary Referrals: Care Physician,No Primary [Primary Care Provider] - Dentist,Your [STAFF PHYSICIAN] - As soon as possible Disposition Disposition: Home, Self Care
[2022-01-09 04:35] VITALS: BP 122/68; PULSE 70; RESP 14; O2SAT 96
== END 2022-01-09 04:35 | disposition home or self-care (01) ==
LOC: ED 04:22
PROVIDERS: Emergency Provider Emergency Medicine; Visit Provider Emergency Medicine
DX: K08.89 Other specified disorders of teeth and supporting structures (principal); Z86.16 Personal history of COVID-19
CPT/HCPCS: 99282

== ENCOUNTER 2022-05-14 14:31 | Emergency (ER) | payer OTHER, SELFPAY ==
[2022-05-14 14:32] VITALS: BP 111/88; PULSE 80; RESP 16; TEMP 36.2; O2SAT 96; BMI 26.6
--- NOTE | 2022-05-14 14:48 | ED.VIS.DENTA ---
HPI History of Present Illness Chief Complaint: Dental Informant: patient Narrative Narrative: Increasing left lower wisdom tooth pain 3 AM this morning. She had her left upper removed 3 days ago followed by Talia Patricia. She reports was seen in the office sent here for evaluation for IV antibiotics concerning for progressing infection due to pain on her neck. She denies fevers. Pain with swallowing. No dyspnea no chest pains. PFSH PFSH Medical History ADHD Anxiety COVID-19 Depression Migraine Home Medications amoxicillin 500 mg tablet 500 mg PO TID #30 tabs 01/09/22 [Rx Last Taken Unknown] hydrocodone-acetaminophen 5-325mg 5mg-325mg 1 tab PO Q4H PRN PRN Pain 2 days #10 TABLETS 01/09/22 [Rx Last Taken Unknown] hydrocodone-acetaminophen 5-325mg 5mg-325mg 1 tab PO Q6H PRN pain 3 days #12 tabs 05/14/22 [Rx Last Taken Unknown] ondansetron 4 mg disintegrating tablet 4 mg PO Q6H PRN nausea and vomiting #10 tabs 05/14/22 [Rx Last Taken Unknown] penicillin V potassium 500 mg tablet 500 mg PO 4X/DAY #40 tabs 05/14/22 [Rx Last Taken Unknown] Allergy/AdvReac Type Severity Reaction Status Date / Time codeine Allergy Itching Verified 05/14/22 14:32 latex Allergy Hives Verified 05/14/22 14:32 Sulfa (Sulfonamide Allergy throat Verified 05/14/22 14:32 Antibiotics) swelling metoclopramide HCl AdvReac Other Verified 05/14/22 14:32 [From [facility]] Social History Smoking Status: Never smoker substance use type: does not use ROS ROS ED Constitutional Constitutional ED: Denies chills, fever(s) or sweats Eyes Eyes: Denies change in vision ENT ENT ED: Reports other Details: Dental pain. ; Denies dysphagia or sore throat Cardiovascular Cardiovascular: Denies chest pain, leg edema, palpitations or racing heartbeat Respiratory/Chest Respiratory/Chest: Denies cough, dyspnea or dyspnea on exertion Gastrointestinal Gastrointestinal: Denies abdominal pain, diarrhea, nausea or vomiting Genitourinary Genitourinary ED: Denies dysuria, hematuria or urinary frequency Musculoskeletal Musculoskeletal: Denies back pain, extremity pain or neck pain Integumentary Denies rash or wounds Neurologic Neurologic: Denies headache(s), paresthesias or weakness EXAM Physical Exam Const Vital Signs: 05/14/22 14:32 Temperature 97.1 F L Temperature Source Temporal Pulse Rate 80 Respiratory Rate 16 Blood Pressure 111/88 H Blood Pressure Mean 95 Pulse Ox 96 Oxygen Delivery Method Room Air Positive well nourished and well developed Constitutional Narrative: Uncomfortable, nontoxic. General Appearance ED: well developed HEENT Reports moist mucous membranes HEENT Narrative: Good dentition, tender above gum line of the left lower molar. There is no sublingual edema. No trismus. Airway patent. Uvula midline. normocephalic and atraumatic Eyes PERRL, EOMs intact bilaterally and conjunctivae normal General Eye ED: Yes normal appearance of both eyes Neck supple Neck Narrative: Left upper cervical lymphadenopathy is tender to palpation. No induration submental submandibular region. No crepitus. General: Negative for tenderness Lymph Lymphatic: lymphadenopathy Chest Wall Chest: Negative for tenderness Resp normal respiratory effort and normal air movement Effort and Inspection: symmetric chest movement; Negative for respiratory distress Cardio regular rate, regular rhythm and no murmurs Peripheral Pulses: pulses 2+ throughout GI normal to inspection, nondistended, normoactive bowel sounds and non-tender Palpation: Negative for guarding or rebound tenderness present Back/Spine no CVA tenderness and no thoracic nor lumbar tenderness Extremity normal to inspection General Extremety ED: Negative for edema or tenderness General Extremity: Negative for edema Neuro oriented x3 and no sensory deficits noted Sensorium / Orientation: awake and alert Skin no rashes or lesions noted and no wounds MDM MDM MDM Narrative Medical decision making narrative: Vital stable is uncomfortable. Clinically she has cervical adenitis likely from her molar pain. There is no signs of abscess without sublingual edema or submental or submandibular swelling. She has no trismus. Discussed no indication to image at this time. Discussed with patient we will treat with dose of steroids, will start oral antibiotics. Discussed if swelling occurs submental region or worsening symptoms to return for reevaluation at that time in testing would be performed. Discussed likely imaging would be normal if symptoms progress, instructions would be to return and read imaging. She understands this. Discharged with outpatient follow-up with strict return precautions. Discharge Plan Triage Chief Complaint: Dental ED Provider: Bladimir Varghese Dx/Rx/DC Orders Clinical Impression: Dentalgia, Cervical lymphadenopathy Instructions: ED ADENITIS Cervical Abx Tx, ED Dental Pain Prescriptions: New hydrocodone-acetaminophen 5-325 mg tablet 1 tab PO Q6H PRN (Reason: pain) 3 Days Qty: 12 0RF penicillin V potassium 500 mg tablet 500 mg PO 4X/DAY Qty: 40 0RF ondansetron 4 mg tablet,disintegrating 4 mg PO Q6H PRN (Reason: nausea and vomiting) Qty: 10 0RF No Action hydrocodone-acetaminophen [hydrocodone-acetaminophen] 1 TABLET tablet 1 tab PO Q4H PRN PRN (Reason: Pain) 2 Days Qty: 10 0RF amoxicillin 500 MG tablet 500 mg PO TID Qty: 30 0RF Primary Care Provider: Care Physician,No Primary Referrals: Care Physician,No Primary [Primary Care Provider] - Activity Restrictions/Additional Instructions: Take antibiotic as prescribed. Pain medicines as discussed. I do not currently see any signs of abscess concerns. Return if worsening symptoms. Follow-up with your dentist. Disposition Disposition: Home, Self Care
[2022-05-14] MEDS: dexAMETHasone 4 MG Tablet 12 MG PO (14:55)
[2022-05-14] MEDS: Penicillin Vk 250 MG Tablet 500 MG PO (14:55)
== END 2022-05-14 14:59 | disposition home or self-care (01) ==
LOC: ED 14:48
PROVIDERS: Emergency Provider Emergency Medicine; Visit Provider Emergency Medicine
DX: K08.89 Other specified disorders of teeth and supporting structures (principal); R59.0 Localized enlarged lymph nodes
CPT/HCPCS: 99283